=== PATIENT | male | born 1990 | race Caucasian/White ===

== ENCOUNTER → 2017-10-08 | Outpatient (REF) | payer SELFPAY | LOC: M LAB REF 17:06 | DX: L02.414 Cutaneous abscess of left upper limb (principal) | CPT/HCPCS: 87186 ==

== ENCOUNTER 2019-10-13 12:11 | Day surgery (SDC) | payer SELFPAY ==
[~2019-10-13] VITALS: Ht 188 cm; Wt 76.1 kg
[2019-10-13] MEDS ORDERED: NS 1,000 ML IV ONE (12:30)
[2019-10-13] MEDS ORDERED: ISOVUE-370 76% 100ML VIAL As Ordered ONE (12:36)
[2019-10-13 13:00] LABS: BASO % 0.4 % (0.0-1.0); EOS % 0.1 % (0.0-3.0); HEMOGLOBIN 14.3 g/dl (13.5-17.5); LYMPH # 1.4 10^3/uL (1.5-5.0); LYMPH % 20.5 % (24.0-44.0); MEAN CORPUSCULAR HEMOGLOBIN 30.2 pg (27.0-33.0); MEAN CORPUSCULAR HGB CONC 33.3 g/dl (32.0-36.5); MEAN CORPUSCULAR VOLUME 90.7 fl (80.0-96.0); MONO # 0.4 10^3/uL (0.0-0.8); MONO % 6.2 % (0.0-5.0); NEUTROPHILS # 4.9 10^3/uL (1.5-8.5); NEUTROPHILS % 71.2 % (36.0-66.0); PLATELET COUNT, AUTOMATED 236 10^3/uL (150-450); RED BLOOD COUNT 4.74 10^6/uL (4.30-6.10); WHITE BLOOD COUNT 6.9 10^3/uL (4.0-10.0)
--- NOTE | 2019-10-13 13:02 | REPVR ---
PROCEDURE INFORMATION: Exam: CT Cervical Spine Without Contrast Exam date and time: 10/13/2019 12:27 PM Age: 29 years old Clinical indication: Injury or trauma; Injury history: Encounter with farm equipment; Work related; Initial encounter; Blunt trauma TECHNIQUE: Imaging protocol: Computed tomography images of the cervical spine without contrast. Radiation optimization: All CT scans at this facility use at least one of these dose optimization techniques: automated exposure control; mA and/or kV adjustment per patient size (includes targeted exams where dose is matched to clinical indication); or iterative reconstruction. COMPARISON: No relevant prior studies available. FINDINGS: Vertebrae: No acute fracture. Normal alignment. Discs/Spinal canal/Neural foramina: No significant disc protrusion. No severe spinal canal stenosis. No significant neural foraminal narrowing. Soft tissues: Unremarkable. Lungs: Lung apices are normal. IMPRESSION: No acute findings. Electronically signed by: Edith Slater On 10/13/2019 13:02:49 PM
--- NOTE | 2019-10-13 13:04 | REPVR ---
PROCEDURE INFORMATION: Exam: CT Head Without Contrast Exam date and time: 10/13/2019 12:27 PM Age: 29 years old Clinical indication: Injury or trauma; Injury history: Encounter with farm equipment; Work related; Initial encounter; Blunt trauma (contusions or hematomas) TECHNIQUE: Imaging protocol: Computed tomography of the head without contrast. Radiation optimization: All CT scans at this facility use at least one of these dose optimization techniques: automated exposure control; mA and/or kV adjustment per patient size (includes targeted exams where dose is matched to clinical indication); or iterative reconstruction. COMPARISON: No relevant prior studies available. FINDINGS: Brain: Normal. No hemorrhage. Unremarkable white matter. No mass effect. Ventricles: Normal. No ventriculomegaly. Bones/joints: Unremarkable. No acute fracture. Sinuses: Visualized sinuses are unremarkable. No fluid levels. Mastoid air cells: Visualized mastoid air cells are well aerated. Soft tissues: There is left parietal soft tissue swelling. IMPRESSION: No acute intracranial hemorrhage or calvarial fracture. Electronically signed by: Edith Slater On 10/13/2019 13:04:18 PM
[2019-10-13 13:06] LABS: INR 1.16; PROTHROMBIN TIME 15.1 SECONDS (11.8-14.0)
[2019-10-13 13:07] LABS: PARTIAL THROMBOPLASTIN TIME 24.8 SECONDS (25.0-38.4)
[2019-10-13] MEDS ORDERED: ONDANSETRON 4MG/2ML VIAL IV ONE (13:15)
[2019-10-13] MEDS ORDERED: MORPHINE 4 MG/ML 1ML VIAL/SYRINGE (J2270) IV ONE (13:15)
[2019-10-13 13:21] LABS: ALBUMIN 4.3 GM/DL (3.2-5.2); ALT/SGPT 27 U/L (12-78); AMYLASE 54 U/L (25-115); BILIRUBIN,DIRECT 0.3 MG/DL (0.0-0.2); BILIRUBIN,TOTAL 1.1 MG/DL (0.2-1.0); BLOOD UREA NITROGEN 13 MG/DL (7-18); CALCIUM LEVEL 9.2 MG/DL (8.5-10.1); CARBON DIOXIDE LEVEL 30 MEQ/L (21-32); CHLORIDE LEVEL 105 MEQ/L (98-107); CK-MB VALUE MASS 9.2 NG/ML (<3.6); CPK CREATINE PHOSPHOKINASE 617 U/L (39-308); CREATININE FOR GFR 0.98 MG/DL (0.70-1.30); ETHYL ALCOHOL (ETHANOL) < 0.003 % (0.000-0.010); GLOMERULAR FILTRATION RATE > 60.0 (>60); GLUCOSE, FASTING 131 MG/DL (70-100); LIPASE 160 U/L (73-393); MB/CK RELATIVE INDEX 1.49 (< OR =4); POTASSIUM SERUM 3.6 MEQ/L (3.5-5.1); SODIUM LEVEL 138 MEQ/L (136-145); TROPONIN I 0.02 NG/ML (< 0.10)
--- NOTE | 2019-10-13 13:30 | REPVR ---
PROCEDURE INFORMATION: Exam: CT Chest With Contrast Exam date and time: 10/13/2019 12:27 PM Age: 29 years old Clinical indication: Injury or trauma; Injury history: Farm equipment accident; Initial encounter; Blunt trauma (contusions or hematomas) TECHNIQUE: Imaging protocol: Computed tomography of the chest with intravenous contrast. Radiation optimization: All CT scans at this facility use at least one of these dose optimization techniques: automated exposure control; mA and/or kV adjustment per patient size (includes targeted exams where dose is matched to clinical indication); or iterative reconstruction. Contrast material: ISOVUE 370; Contrast volume: 100 ml; Contrast route: INTRAVENOUS (IV); COMPARISON: No relevant prior studies available. FINDINGS: Lungs: Unremarkable. No consolidation. No masses. Pleural space: Unremarkable. No pneumothorax. No pleural effusion. Heart: Unremarkable. No cardiomegaly. No pericardial effusion. Aorta: Unremarkable. No aortic aneurysm. Lymph nodes: Unremarkable. No enlarged lymph nodes. Bones/joints: There is a displaced left 7th lateral rib fracture. There are displaced left T9, T10 and T11 posterior rib fractures. Soft tissues: Soft tissue injury involves the medial aspect of the left upper arm. IMPRESSION: Left lateral and posterior rib fractures. Electronically signed by: Edith Sltaer On 10/13/2019 13:30:38 PM
--- NOTE | 2019-10-13 13:33 | REPVR ---
PROCEDURE INFORMATION: Exam: CT Abdomen And Pelvis With Contrast Exam date and time: 10/13/2019 12:27 PM Age: 29 years old Clinical indication: Injury or trauma; Injury history: Farm equipment accident; Initial encounter; Blunt; Generalized TECHNIQUE: Imaging protocol: Computed tomography of the abdomen and pelvis with intravenous contrast. Radiation optimization: All CT scans at this facility use at least one of these dose optimization techniques: automated exposure control; mA and/or kV adjustment per patient size (includes targeted exams where dose is matched to clinical indication); or iterative reconstruction. Contrast material: ISOVUE 370; Contrast volume: 100 ml; Contrast route: INTRAVENOUS (IV); COMPARISON: No relevant prior studies available. FINDINGS: Liver: Normal. No mass. Gallbladder and bile ducts: Normal. No calcified stones. No ductal dilation. Pancreas: Normal. No ductal dilation. Spleen: Normal. No splenomegaly. Adrenals: Normal. No mass. Kidneys and ureters: Normal. No hydronephrosis. Stomach and bowel: Unremarkable. No obstruction. No mucosal thickening. Appendix: No evidence of appendicitis. Intraperitoneal space: Unremarkable. No free air. No significant fluid collection. Vasculature: Unremarkable. No abdominal aortic aneurysm. Lymph nodes: Unremarkable. No enlarged lymph nodes. Bladder: Unremarkable as visualized. Reproductive: Unremarkable as visualized. Bones/joints: There is a comminuted left 7th lateral rib fracture. There are displaced left 9th, 10th and 11th posterior rib fractures. There is a nondisplaced left 4th posterior rib fracture. Soft tissues: Unremarkable. IMPRESSION: Multifocal left-sided rib fractures. Electronically signed by: Edith Slater On 10/13/2019 13:34:08 PM
--- NOTE | 2019-10-13 13:44 | REPVR ---
PROCEDURE INFORMATION: Exam: CT Thoracic Spine Without Contrast Exam date and time: 10/13/2019 12:27 PM Age: 29 years old Clinical indication: Injury or trauma; Injury history: Farm equipment accident; Initial encounter; Blunt trauma (contusions or hematomas) TECHNIQUE: Imaging protocol: Computed tomography images of the thoracic spine without contrast. Radiation optimization: All CT scans at this facility use at least one of these dose optimization techniques: automated exposure control; mA and/or kV adjustment per patient size (includes targeted exams where dose is matched to clinical indication); or iterative reconstruction. COMPARISON: No relevant prior studies available. FINDINGS: Vertebrae: No acute fracture. Normal alignment. Discs/Spinal canal/Neural foramina: No significant disc protrusion. No severe spinal canal stenosis. No significant neural foraminal narrowing. Soft tissues: Unremarkable. IMPRESSION: No acute fracture. Electronically signed by: Edith Slater On 10/13/2019 13:44:39 PM
--- NOTE | 2019-10-13 13:46 | REPVR ---
PROCEDURE INFORMATION: Exam: CT Lumbar Spine Without Contrast Exam date and time: 10/13/2019 12:27 PM Age: 29 years old Clinical indication: Injury or trauma; Injury history: Farm equipment accident; Initial encounter; Blunt trauma (contusions or hematomas) TECHNIQUE: Imaging protocol: Computed tomography images of the lumbar spine without contrast. Radiation optimization: All CT scans at this facility use at least one of these dose optimization techniques: automated exposure control; mA and/or kV adjustment per patient size (includes targeted exams where dose is matched to clinical indication); or iterative reconstruction. COMPARISON: No relevant prior studies available. FINDINGS: Vertebrae: No acute fracture. Normal alignment. Discs/Spinal canal/Neural foramina: No significant disc protrusion. No severe spinal canal stenosis. No significant neural foraminal narrowing. Other bones/joints: Left 10th and 11th posterior rib fractures are imaged. Soft tissues: Unremarkable. IMPRESSION: No acute abnormality. Electronically signed by: Edith Slater On 10/13/2019 13:46:10 PM
[2019-10-13] MEDS ORDERED: LIDOCAINE W/EPINEPHRINE 1% 20ML VIAL SC ONE (14:30)
[2019-10-13] MEDS ORDERED: AMPICILLIN SOD/SULBACTAM SOD 3 GM in D5W MINI-BAG PLUS 100 ML IV ONE (15:00)
[2019-10-13] MEDS ORDERED: DERMABOND TOPICAL SKIN ADHESIVE TOP ONE (16:15)
[2019-10-13 18:00] VITALS: BP 139/66
[2019-10-13] MEDS ORDERED: NS 1,000 ML IV SCH ×2 (18:00→22:49)
[2019-10-13] MEDS ORDERED: propofoL 200 MG/20 ML VIAL As Ordered ONE (20:52)
[2019-10-13] MEDS ORDERED: fentaNYL 100 MCG/2 ML INJECTION (J3010) As Ordered ONE (20:52)
[2019-10-13] MEDS ORDERED: LIDOCAINE 2% 100MG/5ML SDV (FOR ANES.) As Ordered ONE (20:52)
[2019-10-13] MEDS ORDERED: MIDAZOLAM INJ 2MG/2ML VIAL (J2250 PER 1MG) As Ordered ONE (20:52)
[2019-10-13] MEDS ORDERED: BUPIVACAINE HCL 0.25% 30ML VIAL As Ordered ONE (21:01)
[2019-10-13] MEDS ORDERED: METOCLOPRAMIDE INJ 10MG/2ML VIAL (J2765 PER 1) As Ordered ONE (21:29)
[2019-10-13] MEDS ORDERED: ACETAMINOPHEN 1000MG 100ML IV BTL (OFIRMEV) (J0131 PER 10MG) As Ordered ONE (21:29)
[2019-10-13] MEDS ORDERED: KETOROLAC 60MG 2ML VIAL As Ordered ONE (21:29)
[2019-10-13] MEDS ORDERED: dexameTHASONE 4 MG/ML 1ML VIAL (J1100 PER 1MG) As Ordered ONE (21:29)
[2019-10-13] MEDS ORDERED: ONDANSETRON 4MG/2ML VIAL As Ordered ONE (21:29)
[2019-10-13] MEDS ORDERED: UNASYN 1.5 GM VIAL As Ordered ONE (21:34)
[2019-10-13] MEDS ORDERED: DESFLURANE 240 ML INHALANT As Ordered ONE (21:44)
[2019-10-13] MEDS ORDERED: ONDANSETRON 4MG/2ML VIAL IV PRN ×2 (23:00)
[2019-10-13] MEDS ORDERED: oxyCODONE 5MG TAB PO PRN (23:00)
[2019-10-13] MEDS ORDERED: NORCO, ANEXSIA 5/325MG TABLET (HYDROcodone/ACETAMINOPHEN) PO PRN (23:00)
[2019-10-13] MEDS ORDERED: LR 1,000 ML IV SCH (23:00)
[2019-10-13] MEDS ORDERED: IPRATROPIUM 0.5MG/ALBUTEROL 2.5MG INH SOL UD 3ML (DUONEB) NEB PRN (23:00)
[2019-10-13] MEDS ORDERED: HYDROMORPHONE HCL 0.5 MG/ 0.5 ML SYRINGE (J1170 PER 1) IV PRN (23:00)
[2019-10-13] MEDS ORDERED: fentaNYL 100 MCG/2 ML INJECTION (J3010) IV PRN (23:00)
[2019-10-13] MEDS ORDERED: MORPHINE 4 MG/ML 1ML VIAL/SYRINGE (J2270) IV PRN (23:00)
[2019-10-13] MEDS ORDERED: PERCOCET 5MG/325MG TAB PO PRN (23:00)
[2019-10-13] MEDS ORDERED: MORPHINE 2 MG/ML 1ML VIAL (J2270) IV PRN ×2 (23:00)
[2019-10-13 23:51] VITALS: BP 136/69
[2019-10-14 00:18] VITALS: BP 116/54
[2019-10-14] MEDS: AMPICILLIN SOD/SULBACTAM SOD 3 GM in D5W MINI-BAG PLUS 100 ML IV SCH ×2 (00:25→03:59)
[2019-10-14 01:05] VITALS: BP 124/59
[2019-10-14] MEDS: IPRATROPIUM 0.5MG/ALBUTEROL 2.5MG INH SOL UD 3ML (DUONEB) NEB SCH ×2 (02:00→08:00)
[2019-10-14 02:01] VITALS: BP 117/53
[2019-10-14] MEDS: KETOROLAC 30 MG/ML 1ML VIAL IV SCH ×2 (03:58→09:48)
[2019-10-14 06:00] VITALS: BP 117/53
[2019-10-14 08:01] LABS: HEMATOCRIT 40.3 % (42.0-52.0); HEMOGLOBIN 13.3 g/dl (13.5-17.5); MEAN CORPUSCULAR HEMOGLOBIN 30.2 pg (27.0-33.0); MEAN CORPUSCULAR VOLUME 91.4 fl (80.0-96.0); PLATELET COUNT, AUTOMATED 198 10^3/uL (150-450); RED BLOOD COUNT 4.41 10^6/uL (4.30-6.10); WHITE BLOOD COUNT 12.8 10^3/uL (4.0-10.0)
[2019-10-14 08:15] LABS: BLOOD UREA NITROGEN 11 MG/DL (7-18); CALCIUM LEVEL 8.4 MG/DL (8.5-10.1); CARBON DIOXIDE LEVEL 28 MEQ/L (21-32); CHLORIDE LEVEL 105 MEQ/L (98-107); CREATININE FOR GFR 0.79 MG/DL (0.70-1.30); GLOMERULAR FILTRATION RATE > 60.0 (>60); GLUCOSE, FASTING 117 MG/DL (70-100); POTASSIUM SERUM 4.3 MEQ/L (3.5-5.1); SODIUM LEVEL 137 MEQ/L (136-145)
[2019-10-14] MEDS ORDERED: AUGM500T34 PO (09:49)
[2019-10-14] MEDS ORDERED: HYDR-3715 PO (09:49)
[2019-10-14 10:00] VITALS: BP 118/53
[2019-10-14] MEDS ORDERED: NEOSPORIN TOP OINT 15GM TOP ONE (10:30)
--- NOTE | 2019-10-14 14:52 | REPVR ---
PROCEDURE INFORMATION: Exam: CT Left Upper Extremity With Contrast, Upper Arm Exam date and time: 10/13/2019 12:42 PM Age: 29 years old Clinical indication: Injury or trauma; Injury history: Farm equipment accident; Initial encounter; Laceration; Arm, upper; Left TECHNIQUE: Imaging protocol: CT of the Left upper extremity with contrast material. Exam focused on the upper arm. Radiation optimization: All CT scans at this facility use at least one of these dose optimization techniques: automated exposure control; mA and/or kV adjustment per patient size (includes targeted exams where dose is matched to clinical indication); or iterative reconstruction. Contrast material: ISOVUE 370; Contrast volume: 100 ml; Contrast route: INTRAVENOUS (IV); COMPARISON: No relevant prior studies available. FINDINGS: Bones/joints: Normal. No acute fracture or dislocation. Soft tissues: There soft tissue injury along the medial aspect of the arm, with a soft tissue defect and foci of air. IMPRESSION: No acute fracture. Soft tissue injury. Electronically signed by: Edith Slater On 10/13/2019 13:26:58 PM
--- NOTE | 2019-11-21 11:05 | RO ---
DATE OF OPERATION: 10/13/2019 PREOPERATIVE DIAGNOSIS: Degloving injury (traumatic injury) to left bicipital muscle, subcutaneous tissue and skin (upper arm). POSTOPERATIVE DIAGNOSIS: Degloving injury (traumatic injury) to left bicipital muscle, subcutaneous tissue and skin (upper arm). PROCEDURE: Complex closure of degloving injury to the left upper arm with multilayered closure (20 cm x 10 cm degloving area). SURGEON: Boby Edwards MD ANESTHESIA: General endotracheal anesthesia. EBL: Minimal. FLUIDS: Crystalloid. BRIEF PROCEDURE SUMMARY: The patient was brought to the operating room, was given general anesthesia. After adequate anesthesia and preoperative antibiotics given, the patient was prepped and draped in usual sterile fashion. The patient was irrigated out in the bicipital muscle area. The bicipital muscle fascia was not intact in several areas but it looked as though the muscle itself was intact. Fortunately I was able to irrigate this out quite nicely and it was relatively clean wound, some minimal ecchymosis/hematoma developing along the skin flap and subcutaneous flap but otherwise no foreign body or debris within this. Thus, at this point a 2-0 Vicryl was used to close the fascia overlying the bicipital muscle. No major vascular injuries were appreciated. No major venous injuries were appreciated in this area. However, the subcutaneous tissue was somewhat edematous and there was some nonviable skin on the edges which was debrided back sharply. 2-0 Vicryl and 3-0 Vicryl were used to close the subcutaneous tissue and dermis all along this J-shaped skin and subcutaneous flap over a round drain. The skin edges were brought together with interrupted nylon all along this area. Just given the irregularity of the wound itself individual sutures were placed all along this area instead of running suture for closure. At the end of the case no significant edema was appreciated in the distal arm. A dry, sterile dressing was used to cover this, Kerlix roll and patient was awakened, brought to the recovery room awake, alert and hemodynamically stable. Sponge and needle counts correct x2. MTDD
== END 2019-10-14 11:35 | disposition home or self-care (01) ==
LOC: M ED 12:11 → M SDC 15:37 → M MS5PR 17:20 → M SDC 10-14 11:35
PROVIDERS: ATTEND Surgery
DX: S41.102A Unspecified open wound of left upper arm, initial encounter (principal); S22.42XA Multiple fractures of ribs, left side, initial encounter for closed fracture; S01.01XA Laceration without foreign body of scalp, initial encounter; S01.312A Laceration without foreign body of left ear, initial encounter; W30.1XXA Contact with power take-off devices (PTO), initial encounter; Y92.79 Other farm location as the place of occurrence of the external cause; Y99.0 Civilian activity done for income or pay; Y93.9 Activity, unspecified
CPT/HCPCS: 12002; 12011; 13121; 13122; 36415; 70450; 71260; 72125; 72128; 72131; 73201; 74177; 80047; 80048; 80076; 82150; 82550; 82553; 83605; 83690; 84484; 85025; 85027; 85610; 85730; 86850; 86900; 86901; 93041; 94760; 96361; 96365; 96366; 96375; 96376; 99285; G0480; J0131; J1100; J1885; J2250; J2270; J2405; J2765; J3010; Q9967; U0002

== ENCOUNTER 2021-04-21 19:12 | Inpatient (IN) | payer OTHER, SELFPAY ==
[~2021-04-21] VITALS: Ht 188 cm; Wt 87.0 kg
[~2021-04-21 19:12] MED LIST: AUGM500T34 PO; HYDR-3715 PO
[2021-04-21] MEDS ORDERED: ISOVUE-370 76% 100ML VIAL As Ordered ONE (20:31)
[2021-04-21 20:38] LABS: HEMATOCRIT 44.9 % (42.0-52.0); HEMOGLOBIN 15.1 g/dl (13.5-17.5); MEAN CORPUSCULAR HGB CONC 33.6 g/dl (32.0-36.5); MEAN CORPUSCULAR VOLUME 89.3 fl (80.0-96.0); PLATELET COUNT, AUTOMATED 209 10^3/uL (150-450); RED BLOOD COUNT 5.03 10^6/uL (4.30-6.10); WHITE BLOOD COUNT 14.4 10^3/uL (4.0-10.0)
[2021-04-21] MEDS ORDERED: NS 1,000 ML IV ONE (22:05)
[2021-04-21] MEDS ORDERED: [UNRECOGNIZED DRUG - CODE] PO (22:10)
[2021-04-21] MEDS ORDERED: HOME MED LIST COMPLETE! XX SCH (22:10)
[2021-04-21] MEDS ORDERED: VITA250T20 PO (22:10)
[2021-04-21 22:48] LABS: RSV AMPLIFICATION NEGATIVE (NEGATIVE)
[2021-04-21] MEDS ORDERED: ONDANSETRON 4MG/2ML VIAL IV PRN (23:20)
[2021-04-21 23:50] VITALS: BP 120/52
[2021-04-22] MEDS: PERCOCET 5MG/325MG TAB PO PRN ×4 (01:55→19:54)
[2021-04-22] MEDS: NORCO, ANEXSIA 5/325MG TABLET (HYDROcodone/ACETAMINOPHEN) PO PRN (03:34)
[2021-04-22 05:54] LABS: HEMATOCRIT 40.4 % (42.0-52.0); HEMOGLOBIN 13.2 g/dl (13.5-17.5); MEAN CORPUSCULAR HEMOGLOBIN 29.7 pg (27.0-33.0); MEAN CORPUSCULAR HGB CONC 32.7 g/dl (32.0-36.5); MEAN CORPUSCULAR VOLUME 90.8 fl (80.0-96.0); PLATELET COUNT, AUTOMATED 189 10^3/uL (150-450); RED BLOOD COUNT 4.45 10^6/uL (4.30-6.10); WHITE BLOOD COUNT 10.7 10^3/uL (4.0-10.0)
[2021-04-22 06:00] VITALS: BP 124/60
[2021-04-22] MEDS: HYDROMORPHONE HCL 0.5 MG/ 0.5 ML SYRINGE (J1170 PER 1) IV PRN ×3 (06:05→21:45)
[2021-04-22] MEDS: HEPARIN SOD (PORCINE) 5000UNITS/ML 1ML VIAL/SYRINGE SC SCH ×3 (06:06→21:45)
[2021-04-22 06:26] LABS: BLOOD UREA NITROGEN 13 MG/DL (7-18); CALCIUM LEVEL 8.4 MG/DL (8.5-10.1); CARBON DIOXIDE LEVEL 28 MEQ/L (21-32); CHLORIDE LEVEL 107 MEQ/L (98-107); CREATININE FOR GFR 0.82 MG/DL (0.70-1.30); GLOMERULAR FILTRATION RATE > 60.0 (>60); GLUCOSE, FASTING 118 MG/DL (70-100); SODIUM LEVEL 140 MEQ/L (136-145)
[2021-04-22 08:00] VITALS: BP 116/54
[2021-04-22 14:00] VITALS: BP 117/64
[2021-04-22 21:15] VITALS: BP 131/74
[2021-04-23] VITALS (7 sets, daily range): BP systolic 114–133; BP diastolic 63–73
[2021-04-23] MEDS: HYDROMORPHONE HCL 0.5 MG/ 0.5 ML SYRINGE (J1170 PER 1) IV PRN (02:18)
[2021-04-23] MEDS ORDERED: fentaNYL 100 MCG/2 ML INJECTION IV PRN ×2 (07:01→21:00)
[2021-04-23] MEDS: NORCO, ANEXSIA 5/325MG TABLET (HYDROcodone/ACETAMINOPHEN) PO PRN (08:36)
[2021-04-23] MEDS: PERCOCET 5MG/325MG TAB PO PRN (17:05)
[2021-04-23] MEDS ORDERED: dexameTHASONE 10MG/1ML VIAL PRES.FREE (J1100 PER 1MG) XX ONE (17:20)
[2021-04-23] MEDS ORDERED: ROPIvacaine 0.5% 30ML INJECTION (J2795 PER 1MG) XX ONE (17:20)
[2021-04-23] MEDS ORDERED: LIDOCAINE 1% MDV 20ML VIAL XX ONE (17:20)
[2021-04-23] MEDS: MIDAZOLAM INJ 2MG/2ML VIAL (J2250 PER 1MG) IV PRN ×2 (18:00→18:05)
[2021-04-23] MEDS ORDERED: ceFAZolin 2 GM/D5W 50 ML IV BAG (J0690 PER 500MG) As Ordered ONE (18:28)
[2021-04-23] MEDS ORDERED: ONDANSETRON 4MG/2ML VIAL As Ordered ONE (19:08)
[2021-04-23] MEDS ORDERED: propofoL 200 MG/20 ML VIAL As Ordered ONE (19:08)
[2021-04-23] MEDS ORDERED: LIDOCAINE 2% 100MG/5ML SDV (FOR ANES.) As Ordered ONE (19:08)
[2021-04-23] MEDS ORDERED: dexameTHASONE 4 MG/ML 1ML VIAL (J1100 PER 1MG) As Ordered ONE (19:08)
[2021-04-23] MEDS ORDERED: METOCLOPRAMIDE INJ 10MG/2ML VIAL (J2765 PER 1) As Ordered ONE (19:08)
[2021-04-23] MEDS ORDERED: MIDAZOLAM INJ 2MG/2ML VIAL (J2250 PER 1MG) As Ordered ONE (19:08)
[2021-04-23] MEDS ORDERED: fentaNYL 100 MCG/2 ML INJECTION As Ordered ONE (19:08)
[2021-04-23] MEDS ORDERED: ACETAMINOPHEN 1000MG 100ML IV BTL (OFIRMEV) (J0131 PER 10MG) As Ordered ONE (19:09)
[2021-04-23] MEDS ORDERED: MORPHINE 4 MG/ML 1ML VIAL/SYRINGE (J2270) IV PRN (20:50)
[2021-04-23] MEDS ORDERED: LR 1,000 ML IV SCH (21:00)
[2021-04-23] MEDS ORDERED: oxyCODONE 5MG TAB PO PRN (21:00)
[2021-04-23] MEDS ORDERED: ONDANSETRON 4MG/2ML VIAL IV PRN (21:00)
[2021-04-23] MEDS ORDERED: PERCOCET 5MG/325MG TAB PO PRN (23:20)
[2021-04-24 00:30] VITALS: BP 115/55
[2021-04-24 01:30] VITALS: BP 113/68
[2021-04-24 02:30] VITALS: BP 105/54
[2021-04-24] MEDS: ceFAZolin SOD 1 GM in D5W MINI-BAG PLUS 50 ML IV SCH ×2 (03:29→11:18)
[2021-04-24] MEDS: NORCO, ANEXSIA 5/325MG TABLET (HYDROcodone/ACETAMINOPHEN) PO PRN ×2 (03:30→09:30)
[2021-04-24 05:32] VITALS: BP 106/53
[2021-04-24 05:40] LABS: BASO % 0.2 % (0.0-1.0); HEMATOCRIT 41.6 % (42.0-52.0); HEMOGLOBIN 13.7 g/dl (13.5-17.5); LYMPH # 0.6 10^3/uL (1.5-5.0); MEAN CORPUSCULAR HEMOGLOBIN 30.2 pg (27.0-33.0); MEAN CORPUSCULAR HGB CONC 32.9 g/dl (32.0-36.5); MEAN CORPUSCULAR VOLUME 91.6 fl (80.0-96.0); MONO # 0.4 10^3/uL (0.0-0.8); MONO % 4.4 % (2.0-8.0); NEUTROPHILS # 8.7 10^3/uL (1.5-8.5); PLATELET COUNT, AUTOMATED 173 10^3/uL (150-450); RED BLOOD COUNT 4.54 10^6/uL (4.30-6.10); WHITE BLOOD COUNT 9.7 10^3/uL (4.0-10.0)
[2021-04-24 06:03] LABS: BLOOD UREA NITROGEN 13 MG/DL (7-18); CALCIUM LEVEL 8.7 MG/DL (8.5-10.1); CARBON DIOXIDE LEVEL 29 MEQ/L (21-32); CHLORIDE LEVEL 104 MEQ/L (98-107); CREATININE FOR GFR 0.96 MG/DL (0.70-1.30); GLOMERULAR FILTRATION RATE > 60.0 (>60); GLUCOSE, FASTING 174 MG/DL (70-100); POTASSIUM SERUM 4.2 MEQ/L (3.5-5.1); SODIUM LEVEL 138 MEQ/L (136-145)
[2021-04-24 07:00] VITALS: BP 116/62
[2021-04-24 10:00] VITALS: BP 118/63
[2021-04-24] MEDS ORDERED: MOTR200T44 PO (11:44)
[2021-04-24] MEDS ORDERED: HYDR-3715 PO (11:44)
[2021-04-24] MEDS ORDERED: ENOXAPARIN 40MG/0.4ML SYRINGE (J1650 PER 10MG) SC SCH (20:00)
== END 2021-04-24 13:10 | disposition home or self-care (01) | DRG 315 ==
LOC: M ED 19:12 → M ED INP 23:19 → ENRESERV 04-22 01:43 → M MSPAV 04-22 02:28
PROVIDERS: ADMIT Internal Medicine; ATTEND Internal Medicine
PROC: BP1KZZZ Fluoroscopy of Left Forearm (ICD-10-PCS; 2021-04-23)
PROC: 0PSL04Z Reposition Left Ulna with Internal Fixation Device, Open Approach (ICD-10-PCS; principal; 2021-04-23 17:30)
DX: S52.252A Displaced comminuted fracture of shaft of ulna, left arm, initial encounter for closed fracture (principal); S22.058A Other fracture of T5-T6 vertebra, initial encounter for closed fracture; S22.068A Other fracture of T7-T8 thoracic vertebra, initial encounter for closed fracture; S22.078A Other fracture of T9-T10 vertebra, initial encounter for closed fracture; S22.088A Other fracture of T11-T12 vertebra, initial encounter for closed fracture; S22.42XA Multiple fractures of ribs, left side, initial encounter for closed fracture; V86.52XA Driver of snowmobile injured in nontraffic accident, initial encounter; W00.0XXA Fall on same level due to ice and snow, initial encounter; Y92.9 Unspecified place or not applicable; Z20.822 Contact with and (suspected) exposure to COVID-19

== ENCOUNTER → 2021-05-02 | Outpatient (CLI) | payer OTHER ==
[~2021-05-02] MED LIST changes: +MOTR200T44 PO; +VITA250T20 PO; +[UNRECOGNIZED DRUG - CODE] PO
== END ==
LOC: M SOG 08:06
PROVIDERS: ATTEND Physician Assistant
DX: S41.112D Laceration without foreign body of left upper arm, subsequent encounter (principal); S52.202D Unspecified fracture of shaft of left ulna, subsequent encounter for closed fracture with routine healing

== ENCOUNTER → 2021-06-10 | Outpatient (CLI) | payer OTHER | LOC: M SOG 09:49 | PROVIDERS: ATTEND Orthopaedic Surgery Hand Surgery | DX: S52.252D Displaced comminuted fracture of shaft of ulna, left arm, subsequent encounter for closed fracture with routine healing (principal); X58.XXXD Exposure to other specified factors, subsequent encounter; Y92.9 Unspecified place or not applicable; Y93.9 Activity, unspecified; Y99.9 Unspecified external cause status ==

== ENCOUNTER → 2021-07-11 | Outpatient (CLI) | payer OTHER | LOC: M SOG 08:33 | PROVIDERS: ATTEND Physician Assistant | DX: S52.252D Displaced comminuted fracture of shaft of ulna, left arm, subsequent encounter for closed fracture with routine healing (principal) ==